=== PATIENT | female | born 1990 | race Caucasian/White ===

== ENCOUNTER 2017-01-29 01:41 | Inpatient (IN) | payer OTHER ==
[~2017-01-29] VITALS: Ht 167.6 cm; Wt 104.4 kg
[2017-01-29 02:39] LABS: HEMATOCRIT 44.5 % (36.0-46.0); MCH 29.4 PG (29.0-34.0); MCHC 33.5 G/DL (30.0-36.0); MCV 87.8 FL (83-99); MEAN PLAT.VOLUME 9.8 uM^3 (9.5-12.4); PLATELET COUNT 294 K/uL (156-360); RBC DIS.WIDTH-CV 13.4 % (11.8-14.6); RBC DIS.WIDTH-SD 42.8 % (39-53); RED BLOOD COUNT 5.07 M/uL (3.80-5.20); WHITE BLOOD COUNT 8.8 K/uL (4.1-10.2)
[2017-01-29 02:50] LABS: CHLORIDE 105 mEq/L (99-109); POTASSIUM 4.4 mEq/L (3.7-5.4); SODIUM 139 mEq/L (136-147)
[2017-01-29 02:51] LABS: GLUCOSE 97 mg/dL (70-99)
[2017-01-29 02:53] LABS: ANION GAP 12 MEQ/L (2-14)
[2017-01-29 02:55] LABS: GFR ESTIMATE (CALCULATED) > 59 mL/min/
[2017-01-29 02:56] LABS: UREA NITROGEN (BUN) 12 mg/dL (9-23)
[2017-01-29 03:02] LABS: TROP-I INTERPRETATION NEGATIVE; TROPONIN-I 0.02 ng/mL (0.0-0.30)
[2017-01-29 03:19] LABS: TOTAL BILIRUBIN 0.5 mg/dL (0.0-1.0)
[2017-01-29 03:20] LABS: ALKALINE PHOSPHATASE 59 IU/L (3-129)
[2017-01-29 03:23] LABS: DIRECT BILIRUBIN 0.2 mg/dL (0.0-0.3)
[2017-01-29 03:24] LABS: CREATINE KINASE 183 IU/L (1-294); LIPASE 14 U/L (1.0-51.0)
[2017-01-29 03:30] LABS: QUANTITATIVE HCG < 4.0 MIU/ML
[2017-01-29 04:16] LABS: ADD MIUA? YES; BILIRUBIN NEGATIVE; BLOOD NEGATIVE; COLOR STRAW ((YELLOW)); GLUCOSE (STRIP) NEGATIVE; KETONES NEGATIVE; LEUKOCYTES NEGATIVE; NITRITE NEGATIVE; PROTEIN (STRIP) 100; SPECIFIC GRAVITY 1.011 (1.000-1.030); UROBILINOGEN 0.2 MG/DL (0.2-1.0)
[2017-01-29 04:18] LABS: BACTERIA NONE SEEN /HPF; EPITHELIAL CELLS RARE /HPF; MUCUS NONE SEEN /LPF; RED BLOOD CELLS 0-5 /HPF (0-5); UCUL ADDED? NO; WHITE BLOOD CELLS 0-5 /HPF (0-5)
[2017-01-29 04:19] LABS: SERUM ETHYL ALCOHOL < 10 mg/dL
[2017-01-29 04:22] LABS: SALICYLATE < 5.0 MG/DL (15-30)
[2017-01-29 04:25] LABS: AMPHETAMINE NEGATIVE (500 ng/mL); BARBITURATES NEGATIVE (200 ng/mL); BENZODIAZEPINES NEGATIVE (150 ng/mL); COCAINE PRESUMPTIVE POSITIVE (150 ng/mL); INTERNAL CONTROLS VALID? YES; METHADONE PRESUMPTIVE POSITIVE (200 ng/mL); METHAMPHETAMINE NEGATIVE (500 ng/mL); OPIATES (MORPHINE) NEGATIVE (100 ng/mL); OXYCODONE NEGATIVE (100 ng/mL); PHENCYCLIDINE NEGATIVE (25 ng/mL); PROPOXYPHENE NEGATIVE (300 ng/mL); THC CANNABINOIDS NEGATIVE (50 ng/mL); TRICYCLIC ANTIDEPRESSANTS NEGATIVE (300 ng/mL)
[2017-01-29 04:26] LABS: ADD MEDTOX COMMENT Y
[2017-01-29 05:44] LABS: BASE EXCESS 1.2 mEq/L (-3 to +3); CARBOXY HGB 3.3 % (0-5); METHEMOGLOBIN 0.9 % (0-1.5); PCO2 41 mm Hg (35-45); PO2 50 mm Hg (80-100); pH 7.41 (7.35-7.45)
[2017-01-29 05:45] LABS: COMMENTS - BLOOD GASES A+C+; DEVICE NC; O2 FLOW 3 L/MIN; SITE RR; TOTAL RESP RATE 22 resp/min
[2017-01-29] MEDS ORDERED: METHADONE10 MG PO (08:23)
[2017-01-29 11:38] LABS: TROP-I INTERPRETATION POSITIVE; TROPONIN-I 1.26 ng/mL (0.0-0.30)
[2017-01-29 13:23] LABS: INTER. NORMALIZED RATIO 1.1; PROTHROMBIN TIME 11.1 (9.2-11.2); PTT 30.1 (25-32)
[2017-01-29 17:31] VITALS: BP 126/69
[2017-01-29 20:00] VITALS: BP 151/67
[2017-01-29 20:54] LABS: TROP-I INTERPRETATION POSITIVE; TROPONIN-I 0.83 ng/mL (0.0-0.30)
[2017-01-29 22:19] LABS: ANION GAP 9 MEQ/L (2-14); CHLORIDE 106 MEQ/L (99-109); SAMPLE HEMOLYSIS CHECK 2; SAMPLE ICTERIC CHECK 0; SAMPLE LIPEMIA CHECK 0; SODIUM 135 MEQ/L (136-147); TOTAL BILIRUBIN 1.2 MG/DL (0.0-1.0)
[2017-01-29 22:22] LABS: POTASSIUM ND MEQ/L (3.7-5.4)
[2017-01-29 22:25] LABS: ALKALINE PHOSPHATASE 48 IU/L (3-129); GFR ESTIMATE (CALCULATED) > 59 mL/min/; GLUCOSE 89 mg/dL (70-99); UREA NITROGEN (BUN) 10 mg/dL (9-23)
[2017-01-29 23:30] LABS: POTASSIUM 3.5 mEq/L (3.7-5.4)
[2017-01-30] VITALS: BP 143/61
[2017-01-30 04:06] VITALS: BP 123/79
[2017-01-30 06:57] VITALS: BP 134/87
[2017-01-30 07:10] LABS: HEMATOCRIT 37.5 % (36.0-46.0); MCH 29.4 PG (29.0-34.0); MCHC 33.1 G/DL (30.0-36.0); MCV 88.9 FL (83-99); MEAN PLAT.VOLUME 9.9 uM^3 (9.5-12.4); PLATELET COUNT 230 K/uL (156-360); RBC DIS.WIDTH-CV 13.9 % (11.8-14.6); RED BLOOD COUNT 4.22 M/uL (3.80-5.20); WHITE BLOOD COUNT 8.6 K/uL (4.1-10.2)
[2017-01-30 07:52] LABS: TROP-I INTERPRETATION INDETERMINATE; TROPONIN-I 0.47 ng/mL (0.0-0.30)
[2017-01-30 10:58] VITALS: BP 112/60
[2017-01-30 15:09] VITALS: BP 158/98
[2017-01-30 23:42] VITALS: BP 105/52
[2017-01-31 06:39] VITALS: BP 113/66
[2017-01-31 07:45] LABS: EOSINOPHIL COUNT 0.2 K/uL (0-0.3); HEMATOCRIT 35.5 % (36.0-46.0); IMMATURE GRANULOCYTE (%) 0.4 % (0.0-0.7); LYMPHOCYTE COUNT 2.6 K/uL (1.0-2.8); MCH 29.7 PG (29.0-34.0); MCHC 33.5 G/DL (30.0-36.0); MCV 88.5 FL (83-99); MEAN PLAT.VOLUME 9.9 uM^3 (9.5-12.4); MONOCYTE (%) 6.7 % (3-12); MONOCYTE COUNT 0.4 K/uL (0-0.8); NEUTROPHIL (%) 38.2 % (45-76); PLATELET COUNT 214 K/uL (156-360); RBC DIS.WIDTH-CV 13.9 % (11.8-14.6); RED BLOOD COUNT 4.01 M/uL (3.80-5.20)
[2017-01-31 07:47] LABS: WHITE BLOOD COUNT 5.2 K/uL (4.1-10.2)
[2017-01-31 08:08] LABS: ANION GAP 9 MEQ/L (2-14); CHLORIDE 104 MEQ/L (99-109); GFR ESTIMATE (CALCULATED) > 59 mL/min/; GLUCOSE 77 mg/dL (70-99); MAGNESIUM 1.9 mg/dl (1.3-2.7); POTASSIUM 3.5 MEQ/L (3.7-5.4); SAMPLE HEMOLYSIS CHECK 0; SAMPLE ICTERIC CHECK 0; SAMPLE LIPEMIA CHECK 0; SODIUM 140 MEQ/L (136-147); UREA NITROGEN (BUN) 9 mg/dL (9-23)
[2017-01-31] MEDS ORDERED: FOLIC ACID1 MG PO (10:51)
[2017-01-31] MEDS ORDERED: ASPIR-LOW81 MG PO (10:51)
[2017-01-31] MEDS ORDERED: THERAGRAN1 TABLET PO (10:51)
[2017-01-31] MEDS ORDERED: Thiamine,Vitamin B1 PO (10:51)
[2017-01-31] MEDS ORDERED: DOCUSATE SODIU100 MG PO (10:51)
[2017-01-31] MEDS ORDERED: AUGMENTIN875 MG PO (10:51)
[2017-01-31] MEDS ORDERED: LABETALOL HCL200 MG PO (10:51)
== END 2017-01-31 11:33 | disposition home or self-care (01) | DRG 280 ==
LOC: EME 01:41 → EDOF 08:02 → 4EAST 17:17
PROVIDERS: Emergency Medicine; Internal Medicine; Internal Medicine Cardiovascular Disease
PROC: 02HV33Z Insertion of Infusion Device into Superior Vena Cava, Percutaneous Approach (ICD-10-PCS; principal; 2017-01-29)
DX: I21.4 Non-ST elevation (NSTEMI) myocardial infarction (principal); E66.01 Morbid (severe) obesity due to excess calories; J18.9 Pneumonia, unspecified organism; Z68.38 Body mass index [BMI] 38.0-38.9, adult; F17.210 Nicotine dependence, cigarettes, uncomplicated; F14.10 Cocaine abuse, uncomplicated; F11.10 Opioid abuse, uncomplicated; I10 Essential (primary) hypertension; F10.10 Alcohol abuse, uncomplicated
CPT/HCPCS: 36600; 71010; 71020; 71275; 80048; 80053; 80076; 81003; 82550; 82803; 83605; 83690; 83735; 84484; 84702; 84999; 85025; 85027; 85379; 85610; 85730; 87040; 90839; 93005; 93306; 94640; 94640 76; 94799; 99202; 99281; 99285; G0480; J0456; J1650; J2060; J2405; J2543; J2765; J3411; J7030; J7042; J7050

== ENCOUNTER 2017-03-23 01:19 | Emergency (ER) | payer OTHER ==
[~2017-03-23] VITALS: Ht 167.6 cm; Wt 104.5 kg
[~2017-03-23 01:19] MED LIST: ASPIR-LOW81 MG PO; AUGMENTIN875 MG PO; DOCUSATE SODIU100 MG PO; FOLIC ACID1 MG PO; LABETALOL HCL200 MG PO; METHADONE10 MG PO; THERAGRAN1 TABLET PO; Thiamine,Vitamin B1 PO
[2017-03-23] MEDS ORDERED: PERCOCET 5/31 TABLET PO (05:59)
[2017-03-23 06:24] VITALS: BP 121/101
== END 2017-03-23 06:27 | disposition home or self-care (01) ==
LOC: EME 01:19
DX: S06.0X0A Concussion without loss of consciousness, initial encounter (principal); S92.901A Unspecified fracture of right foot, initial encounter for closed fracture; M79.642 Pain in left hand; M54.5 Low back pain; S80.211A Abrasion, right knee, initial encounter; S70.311A Abrasion, right thigh, initial encounter; S00.01XA Abrasion of scalp, initial encounter; Y09 Assault by unspecified means; F17.200 Nicotine dependence, unspecified, uncomplicated
CPT/HCPCS: 70450; 73130; 73630; 99281; 99284

== ENCOUNTER 2017-03-25 10:46 | Emergency (ER) | payer OTHER ==
[~2017-03-25] VITALS: Ht 167.6 cm; Wt 108.7 kg
[~2017-03-25 10:46] MED LIST changes: +PERCOCET 5/31 TABLET PO
[2017-03-25] MEDS ORDERED: ULTRAM50 MG PO (17:04)
[2017-03-25] MEDS ORDERED: NAPROXEN500 MG PO (17:04)
[2017-03-25 17:39] VITALS: BP 120/74
== END 2017-03-25 17:35 | disposition home or self-care (01) ==
LOC: EME 10:46
DX: S97.81XA Crushing injury of right foot, initial encounter (principal); S00.11XA Contusion of right eyelid and periocular area, initial encounter; S60.222A Contusion of left hand, initial encounter; Y04.2XXA Assault by strike against or bumped into by another person, initial encounter; Z97.5 Presence of (intrauterine) contraceptive device
CPT/HCPCS: 73630; 99281; 99283